=== PATIENT | male | born 1970 | race Caucasian/White ===

== ENCOUNTER 2016-04-23 12:01 | Emergency (ER) | payer MEDICARE, MEDICAID ==
[~2016-04-23] VITALS: Ht 185.4 cm; Wt 81.6 kg
[2016-04-23 16:02] VITALS: BP 118/84
== END 2016-04-23 16:10 | disposition home or self-care (01) ==
LOC: ER 12:01
DX: S51.811A Laceration without foreign body of right forearm, initial encounter (principal); F17.210 Nicotine dependence, cigarettes, uncomplicated; W22.8XXA Striking against or struck by other objects, initial encounter; Y93.89 Activity, other specified; Y99.8 Other external cause status; Y92.89 Other specified places as the place of occurrence of the external cause